=== PATIENT | female | born 1985 | race Caucasian/White ===

== ENCOUNTER 2020-10-20 21:46 | Emergency (ER) | payer SELFPAY ==
[~2020-10-20] VITALS: Ht 172.7 cm; Wt 65.8 kg
[2020-10-20] MEDS ORDERED: NEOM28.37 TP (22:15)
--- NOTE | 2020-10-20 22:25 | NUR ---
Patient discharged to home in stable condition. Written and verbal after care instructions given. Patient verbalizes understanding of instructions. Stressed follow up or return to ER for worsening s/s. Patient ambulated with steady gait.
[2020-10-20 22:26] VITALS: BP 122/79
== END 2020-10-20 22:26 | disposition home or self-care (01) ==
LOC: ER 21:46
DX: H00.014 Hordeolum externum left upper eyelid (principal); Z86.69 Personal history of other diseases of the nervous system and sense organs; Z90.49 Acquired absence of other specified parts of digestive tract
CPT/HCPCS: A4663